=== PATIENT | female | born 1950 | race Hispanic/Latino ===

== ENCOUNTER 2016-11-10 06:35 | Day surgery (SDC) | payer MEDICARE, OTHER ==
[2016-11-10] MEDS ORDERED: ECOTRIN PO ONE (06:58)
[2016-11-10] MEDS ORDERED: NACL 0.9% 500 ML 500 ML IV SCH (07:00)
[2016-11-10 07:37] LABS: Basophils % (Auto) 0.6 % (0.0-1.8); Hematocrit 40.4 % (30.3-42.9); Hemoglobin 13.4 gm/dl (10.1-14.3); Mean Corpuscular HGB Conc 33 % (30-34); Mean Corpuscular Hemoglobin 31 pg (28-32); Mean Corpuscular Volume 93 fl (79-97); Platelet Count 289 K/mm3 (140-440); Red Blood Count 4.32 M/mm3 (3.65-5.03); Red Cell Distribution Width 13.8 % (13.2-15.2); White Blood Count 8.5 K/mm3 (4.5-11.0)
[2016-11-10 07:56] LABS: Anion Gap 16 mmol/L; BUN/Creatinine Ratio 25.71; Blood Urea Nitrogen 18 mg/dL (7-17); Calcium 8.9 mg/dL (8.4-10.2); Carbon Dioxide 25 mmol/L (22-30); Chloride 102.5 mmol/L (98-107); Glucose 87 mg/dL (65-100); Potassium 4.1 mmol/L (3.6-5.0); Sodium 139 mmol/L (137-145)
[2016-11-10] MEDS ORDERED: XYLOCAINE 2% INFILTRATI ONE (08:04)
[2016-11-10] MEDS: CALAN ONE ×2 (08:29→08:50)
[2016-11-10] MEDS: HEPARIN 10,000 UNITS/10 ML ONE ×2 (08:30→08:50)
[2016-11-10] MEDS: HEPARIN/NS 5000 UNIT/500ML(CATH LAB) 1,000 ML IR ONE ×2 (08:31→08:50)
[2016-11-10] MEDS: SUBLIMAZE ONE ×3 (08:31→08:49)
[2016-11-10] MEDS: VERSED ONE ×3 (08:31→08:49)
[2016-11-10] MEDS ORDERED: NEO SYNEPHRINE/NS Syringe(OR USE) IV ONE (08:37)
--- NOTE | 2016-11-10 09:31 | Short Stay Summary ---
Short Stay Documentation Date of service: 11/10/16 - History H&P: obtained from office - Allergies and Medications Current Medications: Allergies Beef Containing Products Adverse Reaction (Verified 11/10/16 06:57) Unknown bandaids Adverse Reaction (Uncoded 11/10/16 06:57) Rash Home Medications Medication Instructions Recorded Confirmed Last Taken Type Clopidogrel Bisulfate [Plavix] 75 mg PO DAILY #30 tablet 07/24/13 11/10/1611/09 Rx AtorvaSTATin [Lipitor] 20 mg PO QDAY 11/03/16 11/10/16 11/09/16 History Cyanocobalamin (Vitamin B-12) 2,000 mcg PO 2XW 11/03/16 11/10/16 11/09/16 History [Vitamin B-12] Ergocalciferol [Vitamin D2] 1 cap PO QWEEK 11/03/16 11/10/16 11/09/16 History Mv,Ca,Min/Iron Fum/FA/Lyco/Lut 1 each PO QDAY 11/03/16 11/10/16 11/09/16 History [Complete Multi Tablet] Phentermine HCl 37.5 mg PO QAM 11/03/16 11/10/16 11/09/16 History Ranitidine HCl [Zantac 150 MG TAB] 150 mg PO QDAY 11/03/16 11/10/16 11/09/16 History Active Medications Sodium Chloride (Nacl 0.9% 500 Ml) 500 mls @ 50 mls/hr IV DIRECT MIGUEL Stop: 11/10/16 16:59 Last Admin: 11/10/16 08:16 Dose: 50 mls/hr - Brief post op/procedure progress note Date of procedure: 11/10/16 Pre-op diagnosis: chest pain, abnormal stress test Procedure: left heart cath - Hospital course Hospital course: Please see dictated cath report. - Disposition Condition at discharge: Stable Disposition: DISCHARGED TO HOME OR SELFCARE - Discharge Diagnoses (1) Chest pain Status: Acute Qualifiers: Chest pain type: C (2) Abnormal stress test Status: Acute (3) Cardiomyopathy Status: Chronic (4) Carotid stenosis Status: Chronic Qualifiers: Laterality: L (5) Hyperlipidemia Status: Chronic Qualifiers: Hyperlipidemia type: H Short Stay Discharge Plan Activity: advance as tolerated Weight Bearing Status: Weight Bear as Tolerated Diet: low fat, low cholesterol, low salt Wound: keep clean and dry Follow up with: DIMITRIS GUADALUPE MD [Staff Physician] - 7 Days Forms: CardCath PCI D/C Instructions Prescriptions: Carvedilol [Coreg] 6.25 mg PO BID #60 tablet
[2016-11-10 10:53] VITALS: BP 148/66
--- NOTE | 2016-11-10 11:39 | Cardiac Catherization Report ---
CARDIAC CATHETERIZATION INDICATIONS FOR PROCEDURE: A 66-year-old female who was noted to have significant carotid disease, has as a preoperative evaluation, had an echocardiogram and a nuclear imaging performed. Echocardiogram showed ejection fraction approximately 37% with moderate to severely hypokinetic apex, mid anterior septal wall and mid inferior septal wall and nuclear imaging performed showed evidence of scar and ischemia in the anterior wall. Hence, scheduled for cardiac catheterization for definitive diagnosis and treatment. 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 Otherwise, she is aware of the procedure, potential complications and alternatives of therapy. It appears that the patient had a left iliac intervention done by Dr. Murphy with a stent placement in the past. Lexiscan nuclear imaging done on 10/12/2016 showed ejection fraction of 28% with moderate area of infarction in the apical lateral myocardial mcgill. DESCRIPTION OF PROCEDURE: The patient was brought to the catheterization laboratory in a fasting condition. The right wrist area and forearm were thoroughly cleansed with Betadine solution. Sterile drapes were applied. Local anesthesia was achieved using 2% Xylocaine. Right radial artery puncture was made using 21-gauge arterial puncture needle. Subsequently, a 5-Malay sheath was introduced. The patient received 3000 units of intravenous heparin and 5 mg of intra-arterial verapamil. The patient was sedated with IV Versed and fentanyl. Using multipurpose catheter, right coronary angiograms were obtained followed by left ventriculogram done in ANDERSON projection using power injector. Subsequently, JL3.5 diagnostic catheter was used to obtain the angiograms of the left coronary artery in the multiple views. At the end of the procedure, catheter and sheath were removed and good hemostasis was achieved with pressure bandage. Following findings were noted. 1. Hemodynamics: Aortic pressure 172/53 mm.hg_. Left ventricular pressure 172 /21 mm.hg. No gradient across the aortic valve. Estimated ejection fraction 25-30%. 2. Right coronary artery dominant vessel arises normally from right coronary cusp. Only very mild smooth irregularities were noted. 3. Left coronary artery showed calcifications in the proximal parts of the LAD. Left main without significant disease. LAD shows a focal 70-75% lesion prior to bifurcation into the mid diagonal branch and LAD. Proximal LAD showed mild disease. Circumflex artery shows long segmental 70-80% eccentric lesion in the proximal part. Distal vessel showed only mild irregularities 4. Left ventriculogram done using power injector in ANDERSON projection showed dilated left ventricle with akinetic mid to distal anterior wall, apical wall, and also inferior wall. Ejection fraction was estimated to be 25-30%. FINAL IMPRESSION: Akinetic anterior wall, apex and distal inferior wall. Significant 70-75% mid LAD focal lesion and also long segmental proximal circumflex lesion noted. However, at this point left ventriculogram shows akinetic areas suggesting this may be mostly scar tissue. The patient does have significant LV dysfunction, would continue medical therapy. Consider viability study and if indicated may consider intervention of the circumflex, LAD. However, considering overall her clinical picture, we would try appropriate medical therapy. The patient is not aware of any history of myocardial infarction in the past. This evaluation is being performed prior to her carotid surgery. No untoward complications were noted. JOB# [id number] LARISSA/KATELIN PAGAN
== END 2016-11-10 12:00 | disposition home or self-care (01) ==
LOC: OPU 06:35
PROVIDERS: ATTEND Internal Medicine
DX: I25.10 Atherosclerotic heart disease of native coronary artery without angina pectoris (principal); E78.5 Hyperlipidemia, unspecified; I65.29 Occlusion and stenosis of unspecified carotid artery; Z72.89 Other problems related to lifestyle; Z79.899 Other long term (current) drug therapy; Z82.3 Family history of stroke; Z82.49 Family history of ischemic heart disease and other diseases of the circulatory system
CPT/HCPCS: 36415; 80048; 85025; 85610; 85730; 93005; 93010; 93458; C1769; C1887; C1894; J1644; J2250; J3010; J7040; J2370; Q9967

== ENCOUNTER 2016-11-24 05:46 | Inpatient (IN) | payer MEDICARE, OTHER ==
--- NOTE | 2016-11-20 10:27 | Admit Criteria Form ---
Admission Criteria Documentation: AMBULATORY SURGERY EXCEPTION CRITERIA Ambulatory Surgery Exception Criteria ( Place 'X' for any and all applicable criteria): Surgery or procedure performed on ambulatory basis may require inpatient stay for[A] ANY ONE of the following(1)(2)(3)(4)(5)(6)(7)(8)(9): [X] I. A preoperative situation, condition, or finding that warrants inpatient stay as indicated by ANY ONE of the following: [] a) Inpatient care needed because of severity of a disease or condition rather than the surgery (eg, severe cardiac or respiratory disease, severe infection) (15) (16 ) (17) (18) [] b) Emergent procedure (eg, angioplasty for acute ischemia)(19) [] c) Complex surgical approach or situation as indicated by ANY ONE of the following(3): [] i) Open approach needed instead of usual endoscopic, transcatheter, or other less invasive procedure [] ii) Difficult approach because of previous operation [] iii) Airway monitoring required after open neck procedures(20)(21) [] iv) Large mass requiring unusually extensive dissection [] v) Additional complicating feature requiring inpatient care (eg, drain management)(22(23): [X] d) Major surgery in a pt with high anesthetic risk as indicated by ANY ONE of the following (2)(3)(5)(7)(8): [X] i) ASA risk class III or higher (severe systemic disease impairing function) [D] [] ii) Advanced age (eg, older than 85 years)(14)(24) [] iii) Symptomatic heart failure(25) [] iv) Symptomatic asthma or COPD(8)(21) [] v) Morbid obesity with hemodynamic or respiratory problems(20)( 21)(26)(27) [] vi) Obstructive sleep apnea(20)(21) [] vii) Former premature infants who are younger than 60 weeks [] viii) High risk for severe postoperative abnormalities (eg, severe postoperative hypocalcemia after parathyroidectomy for severe hyperparathyroidism)(27)( 28) [] ix) Unstable angina(25) [] e) Drug-related risk requiring inpatient stay as indicated by ANY ONE of the following(5)(10)(14)(32)(33) [] i) Procedure requires discontinuing drugs or other therapy (eg , antiarrhythmic medication, antiseizure medication), which necessitates inpatient observation or treatment.(18)(31) [] ii) Major surgery and high risk drug use as indicated by ANY ONE of the following: [] 1) Active abuse of cocaine or similar drug [] 2) Monoamine oxidase inhibitor use [] 3) Other drug identified as posing risk [] f) Inadequate outpatient care situation as indicated by ANY ONE of the following(5)(10)(14)(32)(33) [] i) Patient lives remote from medical facility and procedure has urgent complication potential, and temporary nearby residence cannot be arranged [] ii) Patient will have postprocedure incapacitation and inadequate assistance at home, or alternative level of care cannot be arranged. [] iii) Patient will have long general anesthesia or procedure side effect resolution time, and competent person to stay with patient on first postoperative night at home or alternative level of care cannot be arranged. []iv) Other inadequate outpatient situation that cannot be handled by other means [] II. A perioperative event, condition, or finding that warrants inpatient stay as indicated by ANY ONE of the following (1)(2)(3): [] a) Inadequate physiologic recovery: cardiovascular, respiratory, or hemodynamic status not normal or near preoperative baseline(18) [] b) Hemodynamic instability [] c) Patient not alert with near normal or baseline mental status [] d) Temperature not normal or as expected and not appropriate for outpatient treatment of condition [] e) Ambulatory or appropriate activity level status not yet achieved post procedure [E](34)(35)(36) [] f) Operative site not appropriate (eg, unexpected or excessive drainage or bleeding) [] g) Postoperative effects not resolved or adequately managed (eg, significant pain or vomiting not appropriate for outpatient or next level of care)(10)(12) [] h) Complicating features requiring inpatient care as indicated by ANY ONE of the following(37): [] i) Severe complications of procedure (eg, bowel injury, airway compromise, vascular injury,severe hemorrhage) [] ii) Extensive (eg, dissection far beyond usual scope of procedure ) or prolonged (eg, 120 minutes beyond usual) surgery needed requiring inpatient postoperative care [] iii) Conversion to an open or complex procedure that requires inpatient care (eg, open vs laparoscopic cholecystectomy, abdominal vs vaginal hysterectomy)(38) [] iv) Comorbid condition or test result identified during or post procedure that requires inpatient care (7) [] v) Malignant hyperthermia(30) [] vi) Other complicating feature requiring inpatient care(22)(23) Inpatient stay may be needed until ALL of the following are present (1)(2)(3)(4) (5)(6)(10)(14)(33)(40): []a) Physiologic recovery: cardiovascular, respiratory, and hemodynamic status normal or near preoperative baseline []b) Hemodynamic stability []c) Patient alert, with near normal or baseline mental status []d) Temperature appropriate: patient afebrile or temperature appropriate for outpt treatment of condition []e) Activity level appropriate: ambulatory or appropriate activity level post procedure []f) Operative site appropriate as indicated by ALL of the following: []i) Site dry or with expected drainage []ii) Any blood noted is as expected for procedure. []g) Postoperative effects resolved or managed as indicated by ALL of the following: []i) Pain management appropriate for outpatient (or next level of) care(10) []ii) Minimal nausea and vomiting: if present, successfully treated with oral medication(12) []iii) Headache, dizziness, or drowsiness (if present) are mild. []h) Voiding status acceptable as indicated by ANY ONE of the following: []i) Voiding spontaneously []ii) No voiding but instructions given for follow-up in 6 to 8 hours []iii) Urinary catheter in place, and instructions given for follow-up []i) Complicating features requiring inpatient care manageable at a lower level of care(37) []j) Comorbid conditions manageable at a lower level of care(37) The original [employer] content created by [employer] has been revised. The portions of the content which have been revised are identified through the use of italic text or in bold, and [facility] has neither reviewed nor approved the modified material. All other unmodified content is copyright [employer]. Please see references footnoted in the original [employer] edition 2016 Admission Criteria Met: Yes
[2016-11-24] MEDS ORDERED: PEPCID PO NR (06:00)
[2016-11-24] MEDS ORDERED: ANCEF/STERILE WATER 2 GM/20 ML 2 GM/20 ML SYRINGE IV NR (06:00)
[2016-11-24] MEDS ORDERED: NACL BACTERIOSTATIC INFILTRATI ONE (06:39)
[2016-11-24] MEDS: NACL 0.9% 1000 ML 1,000 ML IV SCH (06:55)
--- NOTE | 2016-11-24 07:22 | Anesthesia Consultation ---
Anesthesia Consult and Med Hx Date of service: 11/24/16 (Scheduled for Right CEA with Dr. Peterson ) - Airway Anesthetic Teeth Evaluation: Good ROM Head & Neck: Adequate Mental/Hyoid Distance: Adequate Mallampati Class: Class II Intubation Access Assessment: Probably Good - Pulmonary Exam CTA: Yes - Cardiac Exam Cardiac Exam: RRR - Pre-Operative Health Status ASA Pre-Surgery Classification: ASA3 Proposed Anesthetic Plan: General - Pre-Anesthesia Comment Pre-Anesthesia Comments: h/o PONV. NPO since midnight. Pt did not take Carvedilol this am. Held in pre-op due to bradycardia. - Pulmonary Hx Smoking: Yes - Cardiovascular System Hx Hypertension: No Hx Peripheral Vascular Disease: Yes (LEFT LEG s/p stent) - Central Nervous System Hx Seizures: No CVA: No Hx Psychiatric Problems: No - Endocrine Hx Renal Disease: No Hx Non-Insulin Dependent Diabetes: No Hx Thyroid Disease: No - Hematic Hx Anemia: No - Other Systems Hx Cancer: No Hx Obesity: Yes (BMI= 35) - Additional Comments Anesthesia Medical History Comments: Pt has known CAD s/p LHC which revealed LAD lesion and Cx lesion. No intervention done at that time. Per cardiology note, plan is to follow up after carotid surgery for further eval and management. Pt denies chest pain or anginal equivalent. Pt did not take Carvedilol this am. Last dose of Plavix last night.
[2016-11-24 07:24] LABS: INR 0.95 (0.87-1.13)
[2016-11-24] MEDS ORDERED: SUBLIMAZE ONE ×2 (07:27→07:48)
[2016-11-24] MEDS ORDERED: ZEMURON IV ONE (07:27)
[2016-11-24] MEDS ORDERED: XYLOCAINE MPF 2% ONE (07:27)
[2016-11-24] MEDS ORDERED: DIPRIVAN 10 MG/ML IV ONE (07:29)
[2016-11-24] MEDS: VERSED IV NR ×2 (07:29→07:36)
[2016-11-24 07:30] LABS: Anion Gap 19 mmol/L; Blood Urea Nitrogen 14 mg/dL (7-17); Calcium 9.1 mg/dL (8.4-10.2); Carbon Dioxide 25 mmol/L (22-30); Chloride 101.8 mmol/L (98-107); Glucose 88 mg/dL (65-100); Sodium 142 mmol/L (137-145)
[2016-11-24] MEDS ORDERED: ZOFRAN IV NR (08:00)
[2016-11-24] MEDS ORDERED: TRANSDERM-SCOP TD NR (08:00)
[2016-11-24] MEDS ORDERED: NACL ONE (08:00)
[2016-11-24] MEDS ORDERED: NACL 0.9% 500 ML ONE (08:00)
[2016-11-24] MEDS ORDERED: ePHEDrine SULFATE ONE ×2 (08:32→16:25)
[2016-11-24] MEDS ORDERED: AMIDATE IV ONE (08:38)
[2016-11-24] MEDS ORDERED: DECADRON ONE (08:51)
[2016-11-24] MEDS ORDERED: HEPARIN 10,000 UNITS/10 ML ONE (08:54)
[2016-11-24] MEDS ORDERED: NACL 0.9% IR ONE (09:01)
[2016-11-24] MEDS ORDERED: GELFOAM TP ONE (09:02)
[2016-11-24] MEDS ORDERED: HEPARIN 10,000 UNITS/10 ML 2,000 UNIT in NACL 0.9% 500 ML 500 ML IR ONE (09:02)
[2016-11-24] MEDS ORDERED: THROMBIN (BOVINE) TP ONE (09:02)
[2016-11-24] MEDS ORDERED: MARCAINE 0.5% INFILTRATI ONE (09:02)
[2016-11-24] MEDS ORDERED: RIFADIN 600 MG in NACL 0.9% 50 ML IR ONE (09:03)
[2016-11-24] MEDS ORDERED: MORPHINE IV PRN (09:03)
--- NOTE | 2016-11-24 09:57 | Operative Report ---
Operative Report Operative Report: Date of procedure: 11/24/2016 Pre-operative diagnosis: Asymptomatic Right Carotid Artery Stenosis Post-operative diagnosis: Asymptomatic Right Carotid Artery Stenosis Procedure(s): 1. Right Carotid Endarterectomy With Patch Angioplasty 2. Intraoperative Completion Duplex Surgeon: Travis Peterson MD Advertising Dispatch Clerk: None Anesthesia: General Endotracheal Anesthesia EBL: 50 mL Findings: Significant internal right carotid artery stenosis. 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 She had a CTA that confirmed approximately 90% stenosis of the right internal carotid artery. She is a symptomatically however given that her degree of stenosis greater than 80% and she was a suitable candidate for surgery she was offered an endarterectomy. She was given the risks, benefits, and alternative procedures and consented to procedure. Description of Procedure: The patient was brought to the operating room and laid in supine position. After general endotracheal anesthesia was achieved the patient was placed in beachchair position with her head elevated and turned slightly to the left. The patient's neck and chest were prepped and draped in normal fashion. An oblique incision was then created along the anterior border of the sternocleidomastoid. The incision was then carried down to the facial vein using sharp dissection. The facial vein was then dissected out circumferentially, suture ligated and divided. The dissection was then carried down to the common carotid using sharp dissection. The common carotid artery was dissected out circumferentially taking care to avoid the vagus nerve which was identified and avoided. The artery was then controlled with a large vessel loop. The dissection was carried up along the external carotid and the superficial thyroid artery was identified dissected out circumferentially and controlled with a 2-0 silk. The external carotid was dissected out and controlled a small vessel loop. I then dissected out the internal carotid artery well above the plaque which was identified by a change in hue of the artery from yellow to blue and palpation of the artery over a right angle. The hypoglossal nerve was identified and avoided. I controlled the internal carotid artery with a small vessel and at this point the patient was systemically heparinized with heparin IV. Once the heparin had circulated for 3 minute I clamped the internal carotid artery followed by the common carotid and then the external Carotid artery. I created an arteriotomy extending from the common carotid into the internal carotid, well above the plaque, using an 11 blade and [place] scissors. I then flashed the internal carotid artery to check for adequate backbleeding. Once ensure there was adequate backbleeding reclamped the artery and used a [place] blade to dissect the plaque away from the artery. I used a right angle to continue the dissection of this plane from lateral to medial and then divided the plaque using [place] scissors. I then trimmed the plaque proximally using [place] and then teased the plaque away from the distal endpoint insuring that there were no areas of dissection or intimal flaps. These plaque forceps to remove all loose debris and then flushed the artery with heparinized saline. I then closed the artery using the Dacron patch and two 6-0 Prolenes in running fashion. Prior to completing the closure I flushed all arteries to remove all loose debris and then flushed the artery with heparinized saline. I then completed the closure in an flashed the internal carotid, reclamped and then removed the clamp from the common carotid followed by the external carotid and allowed any loose debris to flush into the external carotid. I then removed the clamp from the internal carotid artery. Hemostasis was achieved with repair sutures with 6-0 Prolene in interrupted fashion and a combination of direct pressure with Quick Clot. Once hemostasis was achieved I performed an intraoperative duplex that demonstrated no evidence of dissection and normalization of internal carotid velocity. I then anesthetized the wound with Exparel and closed in 2 layers using a 3-0 Vicryl in running in the deep dermal layer and a 4-0 Monocryl in running in the subcuticular layer and dressed it with the Surgiseal. The patient tolerated the procedure well all sponge needle and instrument counts were correct the patient was taken to the recovery area in stable condition.
[2016-11-24] MEDS ORDERED: NORCO 5/325 PO PRN (10:00)
[2016-11-24] MEDS ORDERED: INTROPIN DRIP 800 MG/D5W 250 ML 800 MG/250 ML BAG IV SCH (10:00)
[2016-11-24] MEDS ORDERED: NIPRIDE 50 MG in D5W 248 ML IV SCH (10:00)
[2016-11-24] MEDS ORDERED: PERCOCET 5/325 PO PRN (10:00)
--- NOTE | 2016-11-24 10:00 | Short Stay Summary ---
Short Stay Documentation Date of service: 11/24/16 Narrative H&P: See H&P - History H&P: obtained from office - Allergies and Medications Current Medications: Allergies Beef Containing Products Adverse Reaction (Verified 11/24/16 07:57) PULLS SKIN OFF bandaids Adverse Reaction (Uncoded 11/10/16 06:57) Rash SURGICL TAPE Adverse Reaction (Uncoded 11/24/16 07:57) Unknown Home Medications Medication Instructions Recorded Confirmed Last Taken Type Clopidogrel Bisulfate [Plavix] 75 mg PO DAILY #30 tablet 07/24/13 11/19/1611/23 Rx AtorvaSTATin [Lipitor] 20 mg PO QDAY 11/03/16 11/19/16 11/23/16 History Cyanocobalamin (Vitamin B-12) 2,000 mcg PO 2XW 11/03/16 11/19/16 11/23/16 History [Vitamin B-12] Ergocalciferol [Vitamin D2] 1 cap PO QWEEK 11/03/16 11/19/16 11/23/16 History Mv,Ca,Min/Iron Fum/FA/Lyco/Lut 1 each PO QDAY 11/03/16 11/19/16 11/23/16 History [Complete Multi Tablet] Phentermine HCl 37.5 mg PO QAM 11/03/16 11/19/16 11/09/16 History Ranitidine HCl [Zantac 150 MG TAB] 150 mg PO QDAY 11/03/16 11/19/16 11/23/16 History Carvedilol [Coreg] 6.25 mg PO BID #60 tablet 11/10/16 11/19/16 11/23/16 20:00 Rx Active Medications Famotidine (Pepcid) 20 mg PO PREOP NR Stop: 11/24/16 23:59 Last Admin: 11/24/16 07:16 Dose: 20 mg Cefazolin Sodium (Ancef/Sterile Water 2 Gm/20 Ml) 2 gm in 20 mls @ 80 mls/hr IV PREOP NR PRN Reason: Protocol Stop: 12/04/16 23:59 Sodium Chloride (Nacl 0.9% 1000 Ml) 1,000 mls @ 42 mls/hr IV DIRECT MIGUEL Last Admin: 11/24/16 06:55 Dose: 42 mls/hr Midazolam HCl (Versed) 2 mg IV PREOP NR Stop: 11/24/16 23:59 Last Admin: 11/24/16 07:36 Dose: 1 mg Morphine Sulfate (Morphine) 2 mg IV Q10MIN PRN PRN Reason: Pain, Moderate (4-6) Stop: 11/24/16 23:59 Ondansetron HCl (Zofran) 4 mg IV PREOP NR Stop: 11/24/16 23:59 Last Admin: 11/24/16 07:33 Dose: 4 mg Scopolamine (Transderm-Scop) 1 each TD PREOP NR Stop: 11/24/16 23:59 Last Admin: 11/24/16 07:32 Dose: 1 each - Brief post op/procedure progress note Date of procedure: 11/24/16 Pre-op diagnosis: Asymptomatic Right Internal Carotid Artery Stenosis Post-op diagnosis: same Procedure: 1. Right Carotid Endarterectomy with Patch Angioplasty 2. Intraoperative Completion Duplex Anesthesia: GETA Surgeon: RADHA RIVAS Estimated blood loss: 50-100ml Pathology: list (right carotid plaque) Specimen disposition: to lab Condition: stable - Disposition Condition at discharge: Good Disposition: DISCHARGED TO HOME OR SELFCARE Short Stay Discharge Plan Activity: no driving until cleared by PCP, other (no heavy lifting or bending at the waist until cleared by physician) Wound: open to air, keep clean and dry, other (okay to shower and wash the wound with soap and water but do not soak in water) Follow up with: RADHA RIVAS MD [Staff Physician] - 14 Days Prescriptions: HYDROcodone/APAP 7.5-325 [[place] 7.5/325] 1 each PO Q6HR PRN #60 tablet PRN Reason: Pain
[2016-11-24] MEDS ORDERED: NEOSTIGMINE ONE (10:09)
[2016-11-24] MEDS ORDERED: ROBINUL ONE ×2 (10:09→10:27)
[2016-11-24] MEDS ORDERED: ROBINUL IV PRN (10:32)
[2016-11-24] MEDS ORDERED: ZOFRAN IV PRN (11:10)
[2016-11-24] MEDS ORDERED: REGLAN IV PRN (11:44)
--- NOTE | 2016-11-24 12:02 | Post Anesthesia Evaluation ---
- Post Anesthesia Evaluation Patient Participated: Yes Airway Patent: Yes Stable Respiratory Function: Yes Nausea/Vomiting: No Temp > 96.8F: Yes Pain Manageable: Yes Adequeate Hydration: Yes Anesthesia Complications: No
[2016-11-24 13:27] LABS: Creatine Kinase MB < 1.0 ng/mL (0.0-4.0)
[2016-11-24 13:28] LABS: Anion Gap 16 mmol/L; Blood Urea Nitrogen 11 mg/dL (7-17); Calcium 7.2 mg/dL (8.4-10.2); Carbon Dioxide 20 mmol/L (22-30); Chloride 109.5 mmol/L (98-107); Creatine Kinase 55 units/L (30-135); Glucose 133 mg/dL (65-100); Potassium 4.2 mmol/L (3.6-5.0); Sodium 141 mmol/L (137-145)
[2016-11-24] MEDS ORDERED: ePHEDrine SULFATE IV PRN (16:30)
[2016-11-24] MEDS: ANCEF/NS 1 GM/50 ML 1 GM/50 ML BAG IV SCH (18:21)
[2016-11-24] MEDS: PLAVIX PO SCH ×2 (19:45→21:26)
[2016-11-24] MEDS: COLACE PO SCH ×2 (19:45→21:26)
[2016-11-24] MEDS: COREG PO SCH (21:12)
[2016-11-25] MEDS: ANCEF/NS 1 GM/50 ML 1 GM/50 ML BAG IV SCH (01:06)
[2016-11-25] MEDS: NACL 0.9% 1000 ML 1,000 ML IV SCH ×2 (01:08→14:56)
--- NOTE | 2016-11-25 08:10 | Vascular Lab Report ---
INTRAOPERATIVE CAROTID ARTERY DUPLEX Reason for exam: Completion of carotid endarterectomy Comments on the right: The common and internal carotid arteries are patent without evidence of intraluminal irregularities. Flow velocities appear to be appropriate. No obvious technical defects at the endarterectomy site appreciated. Impression: No obvious technical imperfections at the endarterectomy site.
[2016-11-25] MEDS: PEPCID PO SCH (09:39)
[2016-11-25] MEDS: COLACE PO SCH ×2 (09:39→21:29)
[2016-11-25] MEDS: PLAVIX PO SCH (09:39)
[2016-11-25] MEDS: COREG PO SCH (10:00)
[2016-11-25] MEDS ORDERED: NON-FORMULARY (Ranitidine Hcl [Zantac 150 Mg Tab] 150 MG) PO SCH (10:00)
--- NOTE | 2016-11-25 10:42 | Consultation ---
History of Present Illness Consult date: 11/25/16 Requesting physician: RADHA RIVAS History of present illness: PULMONARY/CCM CONSULT NOTE (Full dictation # [id number]) Please see dictated notes for full details Medications and Allergies Allergies Allergy/AdvReac Type Severity Reaction Status Date / Time Beef Containing Products AdvReac PULLS SKIN Verified 11/24/16 07:57 OFF bandaids AdvReac Rash Uncoded 11/10/16 06:57 SURGICL TAPE AdvReac Unknown Uncoded 11/24/16 07:57 Home Medications Medication Instructions Recorded Confirmed Last Taken Type Clopidogrel Bisulfate [Plavix] 75 mg PO DAILY #30 tablet 07/24/13 11/19/1611/23 Rx AtorvaSTATin [Lipitor] 20 mg PO QDAY 11/03/16 11/19/16 11/23/16 History Cyanocobalamin (Vitamin B-12) 2,000 mcg PO 2XW 11/03/16 11/19/16 11/23/16 History [Vitamin B-12] Ergocalciferol [Vitamin D2] 1 cap PO QWEEK 11/03/16 11/19/16 11/23/16 History Mv,Ca,Min/Iron Fum/FA/Lyco/Lut 1 each PO QDAY 11/03/16 11/19/16 11/23/16 History [Complete Multi Tablet] Phentermine HCl 37.5 mg PO QAM 11/03/16 11/19/16 11/09/16 History Ranitidine HCl [Zantac 150 MG TAB] 150 mg PO QDAY 11/03/16 11/19/16 11/23/16 History Carvedilol [Coreg] 6.25 mg PO BID #60 tablet 11/10/16 11/19/16 11/23/16 20:00 Rx HYDROcodone/APAP 7.5-325 [[place] 1 each PO Q6HR PRN #60 tablet 11/24/16 Unknown Rx 7.5/325] Active Meds: Active Medications Acetaminophen/Hydrocodone Bitart ([place] 5/325) 1 each PO Q6H PRN PRN Reason: Pain, Moderate (4-6) Atorvastatin Calcium (Lipitor) 20 mg PO QHS [facility] Last Admin: 11/24/16 21:26 Dose: 20 mg Carvedilol (Coreg) 6.25 mg PO BID [facility] Last Admin: 11/24/16 21:12 Dose: Not Given Clopidogrel Bisulfate (Plavix) 75 mg PO QDAY [facility] Last Admin: 11/25/16 09:39 Dose: 75 mg Docusate Sodium (Colace) 100 mg PO BID [facility] Last Admin: 11/25/16 09:39 Dose: 100 mg Ephedrine Sulfate (Ephedrine Sulfate) 10 mg IV Q5M PRN PRN Reason: Blood Pressure Last Admin: 11/24/16 16:30 Dose: 10 mg Famotidine (Pepcid) 20 mg PO DAILY [facility] Last Admin: 11/25/16 09:39 Dose: 20 mg Glycopyrrolate (Robinul) 0.1 mg IV ONCE PRN PRN Reason: Bradycardia Last Admin: 11/24/16 10:32 Dose: 0.1 mg Dopamine HCl/Dextrose (Intropin Drip 800 Mg/D5w 250 Ml) 800 mg in 250 mls @ 9.352 mls/hr IV TITR MIGUEL; 5 MCG/KG/MIN PRN Reason: Protocol Sodium Nitroprusside 50 mg/ (Dextrose) 250 mls @ 7.48 mls/hr IV TITR MIGUEL; 0.25 MCG/KG/MIN PRN Reason: Protocol Sodium Chloride (Nacl 0.9% 1000 Ml) 1,000 mls @ 100 mls/hr IV DIRECT MIGUEL Metoclopramide HCl (Reglan) 10 mg IV ONCE PRN PRN Reason: Nausea Last Admin: 11/24/16 11:58 Dose: 10 mg Oxycodone/Acetaminophen (Percocet 5/325) 1 tab PO Q6H PRN PRN Reason: Pain, Moderate (4-6) Physical Examination Vital signs: Vital Signs Temp Pulse Resp BP Pulse Ox 98.7 F 57 L 18 119/48 96 11/24/16 06:35 11/24/16 06:35 11/24/16 06:35 11/24/16 06:35 11/24/16 06:35 Results - Laboratory Findings CBC and BMP: 11/24/16 12:30 PT/INR, D-dimer PT 12.6 Sec. (12.2-14.9) 11/24/16 06:40 INR 0.95 (0.87-1.13) 11/24/16 06:40 Abnormal lab findings: Abnormal Labs 03/07/17 12:30 Chloride 109.5 H Carbon Dioxide 20 L Creatinine 0.5 L Glucose 133 H Calcium 7.2 L D
--- NOTE | 2016-11-25 13:26 | Consultation ---
History of Present Illness Consult date: 11/25/16 Requesting physician: SONU SAUCEDA Consult reason: bradycardia History of present illness: The patient is a 66 year old female who is followed by Dr. Alcantara in the office with a history of carotid stenosis, cardiomyopathy, hypertension, hyperlipidemia who underwent successful right carotid endarterectomy yesterday by Dr. Peterson. Today, she has been bradycardic with HR in the 40s-50s. SBP 80s- 100s. She denies any chest pain, palpitations, shortness of breath, dizziness, lightheadedness or syncope. Echo done 09/2016 showed EF 37%. Left heart cath done 11/10/16 showed akinetic anterior wall, apex, and distal inferior wall. A 70 -75% mid LAD lesion and 70-80% proximal LCX lesion were also noted. A viability study at [place] is planned to help determine further management of her CAD. Given her cardiomyopathy, she was started on coreg 6.25mg BID following her heart cath. Past History Past Medical History: hyperthyroidism, hyperlipidemia, other (carotid stenosis, cardiomyopathy, hearing impaired) Past Surgical History: Other (s/p right CEA) Social history: . denies: smoking, alcohol abuse Family history: no significant family history Medications and Allergies Allergies Allergy/AdvReac Type Severity Reaction Status Date / Time Beef Containing Products AdvReac PULLS SKIN Verified 11/24/16 07:57 OFF bandaids AdvReac Rash Uncoded 11/10/16 06:57 SURGICL TAPE AdvReac Unknown Uncoded 11/24/16 07:57 Home Medications Medication Instructions Recorded Confirmed Last Taken Type Clopidogrel Bisulfate [Plavix] 75 mg PO DAILY #30 tablet 07/24/13 11/19/1611/23 Rx AtorvaSTATin [Lipitor] 20 mg PO QDAY 11/03/16 11/19/16 11/23/16 History Cyanocobalamin (Vitamin B-12) 2,000 mcg PO 2XW 11/03/16 11/19/16 11/23/16 History [Vitamin B-12] Ergocalciferol [Vitamin D2] 1 cap PO QWEEK 11/03/16 11/19/16 11/23/16 History Mv,Ca,Min/Iron Fum/FA/Lyco/Lut 1 each PO QDAY 11/03/16 11/19/16 11/23/16 History [Complete Multi Tablet] Phentermine HCl 37.5 mg PO QAM 11/03/16 11/19/16 11/09/16 History Ranitidine HCl [Zantac 150 MG TAB] 150 mg PO QDAY 11/03/16 11/19/16 11/23/16 History Carvedilol [Coreg] 6.25 mg PO BID #60 tablet 11/10/16 11/19/16 11/23/16 20:00 Rx HYDROcodone/APAP 7.5-325 [[place] 1 each PO Q6HR PRN #60 tablet 11/24/16 Unknown Rx 7.5/325] Active Meds: Active Medications Acetaminophen/Hydrocodone Bitart ([place] 5/325) 1 each PO Q6H PRN PRN Reason: Pain, Moderate (4-6) Atorvastatin Calcium (Lipitor) 20 mg PO QHS [facility] Last Admin: 11/24/16 21:26 Dose: 20 mg Carvedilol (Coreg) 6.25 mg PO BID [facility] Last Admin: 11/24/16 21:12 Dose: Not Given Clopidogrel Bisulfate (Plavix) 75 mg PO QDAY [facility] Last Admin: 11/25/16 09:39 Dose: 75 mg Docusate Sodium (Colace) 100 mg PO BID [facility] Last Admin: 11/25/16 09:39 Dose: 100 mg Ephedrine Sulfate (Ephedrine Sulfate) 10 mg IV Q5M PRN PRN Reason: Blood Pressure Last Admin: 11/24/16 16:30 Dose: 10 mg Famotidine (Pepcid) 20 mg PO DAILY [facility] Last Admin: 11/25/16 09:39 Dose: 20 mg Glycopyrrolate (Robinul) 0.1 mg IV ONCE PRN PRN Reason: Bradycardia Last Admin: 11/24/16 10:32 Dose: 0.1 mg Dopamine HCl/Dextrose (Intropin Drip 800 Mg/D5w 250 Ml) 800 mg in 250 mls @ 9.352 mls/hr IV TITR MIGUEL; 5 MCG/KG/MIN PRN Reason: Protocol Sodium Nitroprusside 50 mg/ (Dextrose) 250 mls @ 7.48 mls/hr IV TITR MIGUEL; 0.25 MCG/KG/MIN PRN Reason: Protocol Sodium Chloride (Nacl 0.9% 1000 Ml) 1,000 mls @ 100 mls/hr IV DIRECT MIGUEL Metoclopramide HCl (Reglan) 10 mg IV ONCE PRN PRN Reason: Nausea Last Admin: 11/24/16 11:58 Dose: 10 mg Oxycodone/Acetaminophen (Percocet 5/325) 1 tab PO Q6H PRN PRN Reason: Pain, Moderate (4-6) Review of Systems Constitutional: no fever, no chills Ears, nose, mouth and throat: no nasal congestion, no nasal discharge, no sinus pressure Cardiovascular: no chest pain, no orthopnea, no palpitations, no lightheadedness , no shortness of breath, no dyspnea on exertion, no leg edema Respiratory: no cough, no congestion, no wheezing Gastrointestinal: no nausea, no vomiting, no diarrhea, no constipation Genitourinary Female: no dysuria, no urgency Musculoskeletal: no neck stiffness, no neck pain, no myalgias Integumentary: no rash, no pruritis Neurological: no parathesias, no numbness, no tingling, no headaches Endocrine: no cold intolerance, no heat intolerance Hematologic/Lymphatic: no easy bruising, no easy bleeding Allergic/Immunologic: no urticaria, no wheezing Physical Examination Vital Signs Temp Pulse Resp BP Pulse Ox 98.7 F 57 L 18 119/48 96 11/24/16 06:35 11/24/16 06:35 11/24/16 06:35 11/24/16 06:35 11/24/16 06:35 General appearance: no acute distress, obese HEENT: Positive: Normocephaly, Mucus Membranes Moist Neck: Positive: neck supple, trachea midline, Other (right neck surgical incision approximated) Cardiac: Positive: Reg Rate and Rhythm, S1/S2 Lungs: Positive: Normal Exam Neuro: Positive: Grossly Intact Abdomen: Positive: Soft, Active Bowel Sounds. Negative: Tender Skin: Positive: Clear. Negative: Rash Extremities: Present: normal. Absent: edema Results 11/25/16 13:20 Cardiac Enzymes 11/24/16 Range/Units 12:30 CK-MB (CK-2) < 1.0 (0.0-4.0) ng/mL Coagulation 11/24/16 Range/Units 06:40 PT 12.6 (12.2-14.9) Sec. INR 0.95 (0.87-1.13) Comprehensive Metabolic Panel 11/24/16 11/24/16 Range/Units 06:40 12:30 Sodium 142 141 (137-145) mmol/L Potassium 4.0 4.2 (3.6-5.0) mmol/L Chloride 101.8 109.5 H (98-107) mmol/L Carbon Dioxide 25 20 L (22-30) mmol/L BUN 14 11 (7-17) mg/dL Creatinine 0.8 0.5 L (0.7-1.2) mg/dL Glucose 88 133 H (65-100) mg/dL Calcium 9.1 7.2 L D (8.4-10.2) mg/dL - Imaging and Cardiology Echo: report reviewed (09/2016: EF 37%) EKG: image reviewed EKG interpretations - Telemetry EKG Rhythm: Sinus Bradycardia - EKG Sinus rhythms and dysrhythmias: sinus bradycardia Repolarization changes or abnormalities: ST or T wave suggestive of ischemia Assessment and Plan Sinus bradycardia-->HR improves with activity pt. asymptomatic d/c coreg check TSH Cardiomyopathy EF 37% currently compensated no beta abel due to bradycardia no ACEI/ARB due to hypotension Coronary artery disease [facility] 11/10/16: akinetic anterior wall, apex, distal inferior wall, 70-75% mid LAD, 70-80% proximal LCX-->viability study planned Carotid stenosis s/p right CEA per vascular surgery Hypertension Hyperlipidemia Check TSH. Discontinue coreg. Follow up appointment with Dr. Alcantara in the [place] office on 12/03/16 at 3:30 pm. The patient has been seen in conjunction with Dr. Davalos who agrees with the assessment and plan of care. Thank you Dr. Sauceda for allowing us to participate in the care of this patient.
[2016-11-25 14:21] LABS: Anion Gap 16 mmol/L; BUN/Creatinine Ratio 15.71; Blood Urea Nitrogen 11 mg/dL (7-17); Calcium 7.8 mg/dL (8.4-10.2); Carbon Dioxide 24 mmol/L (22-30); Chloride 106.5 mmol/L (98-107); Glucose 99 mg/dL (65-100); INR 1.15 (0.87-1.13); Magnesium 1.9 mg/dL (1.7-2.3); Potassium 4.2 mmol/L (3.6-5.0); Sodium 142 mmol/L (137-145)
--- NOTE | 2016-11-25 18:36 | Progress Note ---
Assessment and Plan This patient is status post a right carotid endarterectomy. She appears to be doing well from a surgical standpoint, but developed hypotension earlier today. She was evaluated by decay control operator and subsequently her cover machine operator. I checked and the patient a couple times throughout the day. Her systolic blood pressure is presently slightly above 100. We'll continue to monitor the patient in the ICU overnight if her blood pressure improves, then she may be able to be discharged tomorrow. - Patient Problems (1) Carotid stenosis Current Visit: No Status: Chronic Qualifiers: Laterality: L Subjective Date of service: 11/25/16 Interval history: Patient is awake and alert. Patient is doing well postoperatively. She had a mild headache yesterday that resolved after a nap. She denies any new headaches. She denies any new neurologic symptoms. Objective - Constitutional Vitals: Vital Signs - 12hr 11/25/16 11/25/16 11/25/16 07:01 07:51 08:00 Temperature 97.3 F L Pulse Rate 41 L 43 L Pulse Rate [ 55 L From Monitor] Respiratory 14 16 15 Rate Blood Pressure 110/53 92/43 O2 Sat by Pulse 100 97 99 Oximetry 11/25/16 11/25/16 11/25/16 09:09 10:00 11:00 Temperature Pulse Rate 59 L 48 L 64 Pulse Rate [ From Monitor] Respiratory 16 18 18 Rate Blood Pressure 97/33 88/41 O2 Sat by Pulse 93 95 95 Oximetry 11/25/16 11/25/16 11/25/16 12:00 12:01 13:00 Temperature 98.3 F Pulse Rate 67 49 L Pulse Rate [ 57 L From Monitor] Respiratory 16 23 Rate Blood Pressure 111/65 106/44 O2 Sat by Pulse 95 94 Oximetry 11/25/16 11/25/16 11/25/16 14:00 15:00 16:00 Temperature 98.5 F Pulse Rate 55 L 63 65 Pulse Rate [ From Monitor] Respiratory 19 22 28 H Rate Blood Pressure 114/47 121/58 113/57 O2 Sat by Pulse 94 96 97 Oximetry 11/25/16 17:00 Temperature Pulse Rate 74 Pulse Rate [ From Monitor] Respiratory 14 Rate Blood Pressure 104/69 O2 Sat by Pulse Oximetry General appearance: Present: no acute distress - EENT Eyes: EOM intact ENT: hearing decreased (patient reads lips) - Neck Neck: supple (soft with scant swelling. Her incision is intact without erythema or drainage. She has mild ecchymosis.) - Respiratory Respiratory effort: normal Extremities: normal temperature - Neurologic Neurologic: no focal deficits - Psychiatric Psychiatric: appropriate mood/affect, intact judgment & insight, cooperative - Labs CBC & Chem 7: 11/25/16 13:20 Labs: Abnormal lab results 11/25/16 11/25/16 Range/Units 13:20 13:20 INR 1.15 H (0.87-1.13) Calcium 7.8 L (8.4-10.2) mg/dL
--- NOTE | 2016-11-26 00:58 | Consultation ---
CONSULTING PHYSICIAN: Travis Peterson MD REASON FOR CONSULTATION: Need for ICU admission and observation, status post carotid endarterectomy. CHIEF COMPLAINT AND HISTORY OF PRESENT ILLNESS: The patient is a 66-year-old female with past medical history amongst other things significant for a diagnosis of peripheral vascular disease. According to her in the year 2011, she had some intermittent claudication and had a stent put in her lower extremities. She thinks it was the left lower extremity. Since then, they have been keeping an eye on her. She stated that recently carotid ultrasound showed 99% occlusion of the right carotid. The decision was made to bring her in for elective carotid endarterectomy. This was done and postprocedure, she was brought into the Intensive Care Unit for observation. She has had some trouble with bradycardia since then; however, has been asymptomatic bradycardia and she was on some beta blockers. When I stopped by to see her, she denied any lightheadedness. She was sitting on the side of the bed. Denied any orthostatic symptoms. Denied any nausea, vomiting, chest pains, palpitations. She has a remote [id number] tobacco smoking history, but quit smoking about 5 years ago. She denies nonrestorative sleep snoring or witnessed apneas. She is obese. That really is as much of the history of presentation as I have. PAST MEDICAL HISTORY: Peripheral vascular disease, hypertension, carotid stenosis, history of arrhythmia, hyperlipidemia. She is obese. PAST SURGICAL HISTORY: She had lifestyle face lift on 03/09/2013 and apparently, a left iliac artery stent on 07/24/2013. MEDICATIONS: She was on at the time I stopped by to see her, according to the medication administration record included the following: [place] 5/325 one tablet p.o. q.6 hours p.r.n. pain, Lipitor 20 mg p.o. at bedtime, Coreg 6.25 mg p.o. b.i.d., Plavix 75 mg p.o. daily, Colace 100 mg p.o. b.i.d., dopamine drip was used intraoperatively, also intraoperatively p.r.n. use, Pepcid 20 mg p.o. daily, Robinmayela received a one-time dose 0.1 mg IV, received some p.r.n. Reglan. ALLERGIES: Beef containing production and surgical tape. DIET: Obese lady. She denies any significant weight loss or gain, preceding few weeks to months. FAMILY AND SOCIAL HISTORY: Lives in the community. She is , drinks occasionally. No current tobacco or illicit drug use or abuse. There is a family history of diabetes, heart disease, and cancer, it is unclear who that is in. REVIEW OF SYSTEMS: No loss of consciousness. No new onset seizures. No new onset focal weakness. No gross hematochezia or melena. No gross hematuria or dysuria. No hematemesis. No hemoptysis. No palpitations. Complete review of systems obtained. Pertinent positives and/or negatives as in body of history above, otherwise they are noncontributory. PHYSICAL EXAMINATION: VITAL SIGNS: At presentation, she was afebrile, temperature 98.7, pulse was 57, respiratory rate was 18, blood pressure 119/48, oxygen sats 96%, inspired oxygen concentration was not recorded, pulse got as low as 36 at a point, but is running in the 48-64 range right now. HEAD, EYES, EARS, NOSE, AND THROAT: Pupils are equal, round, about 4 mm, reactive to light. Extraocular muscle movements were intact. Grossly, no palpable lymph nodes in the supraclavicular or submandibular lymph node chains. LUNGS: Auscultation of both lung fisher unremarkable. Lungs are clear bilaterally. HEART: Heart sounds 1 and 2 are heard. Regular rate and rhythm at the time of my evaluation. ABDOMEN: Soft, full, bowel sounds are positive, nontender. She has some tenderness in the right carotid area around the site of surgery. EXTREMITIES: Without overt digital clubbing, cyanosis, or pedal edema. NEUROLOGIC: The exam was grossly nonfocal. LABORATORY DATA: From my review are as follows: INR 0.95. Serum sodium 142, potassium 4.0, chloride 102, bicarbonate 25, BUN 14, creatinine 0.8, glucose 88. Cardiac enzymes were negative. No radiographic studies for my review. ASSESSMENT AND PLAN: We have an elderly lady in here with a little bit of a bothersome bradycardia at this point, she went as low as 36. She is currently on Coreg, I believe at the list that should be reduced; however, most importantly, I think she should be seen by her pile driver operator to adjust her home medications before she is discharged on an inordinate dose of beta blockers. I do see echocardiogram here from 10/12/2016 that also shows reduced ejection fraction around 37% as well as mild diastolic dysfunction and elevated right ventricular systolic pressures . So, recommendations will be as follows: Supplemental oxygen as needed to keep sats greater than 92%. Aspiration precautions will be continued, p.r.n. bronchodilators. We are holding her beta blockade for now. We will put in for a Cardiology consult. Otherwise, she is appropriately on GI prophylaxis. She will be placed on DVT prophylaxis. Flu and pneumonia vaccination will be per protocol. Further care will be per the attending. Thank you very much for the consult Dr. Peterson. We will follow along and make further recommendations as picture progresses/becomes clearer. JOB# [id number] KOLE/KATELIN
[2016-11-26] MEDS: NACL 0.9% 1000 ML 1,000 ML IV SCH ×2 (01:00→10:30)
--- NOTE | 2016-11-26 08:49 | Progress Note ---
Assessment and Plan Sinus bradycardia-->HR improves with activity pt. asymptomatic TSH normal coreg discontinued Cardiomyopathy EF 37% currently compensated no beta abel due to bradycardia no ACEI/ARB due to hypotension Coronary artery disease [facility] 11/10/16: akinetic anterior wall, apex, distal inferior wall, 70-75% mid LAD, 70-80% proximal LCX-->viability study planned Carotid stenosis s/p right CEA per vascular surgery Hypertension Hyperlipidemia Coreg discontinued. Stable cardiac status. Follow up appointment with Dr. ANNA Alcantara in the [place] office on 12/03/16 at 3:30 pm. The patient has been seen in conjunction with Dr. Davalos who agrees with the assessment and plan of care. Subjective Date of service: 11/26/16 Principal diagnosis: sinus bradycardia, s/p R CEA Interval history: The patient is resting comfortably in bed. No new complaints. Objective Last Vital Signs Temp 98.5 F 11/26/16 10:00 Pulse 84 11/26/16 09:01 Resp 13 11/26/16 09:01 BP 72/38 11/26/16 09:01 Pulse Ox 93 11/26/16 09:01 - Physical Examination General: No Apparent Distress HEENT: Positive: Normocephaly, Mucus Membranes Moist Neck: Positive: neck supple, trachea midline, Other (right neck surgical incision approximated) Cardiac: Positive: Reg Rate and Rhythm, S1/S2 Lungs: Positive: clear to auscultation Neuro: Positive: Grossly Intact Abdomen: Positive: Soft, Active Bowel Sounds. Negative: Tender Skin: Positive: Clear. Negative: Rash Extremities: Present: normal. Absent: edema - Labs and Meds Coagulation 11/25/16 Range/Units 13:20 PT 14.6 (12.2-14.9) Sec. INR 1.15 H (0.87-1.13) Comprehensive Metabolic Panel 11/25/16 Range/Units 13:20 Sodium 142 (137-145) mmol/L Potassium 4.2 (3.6-5.0) mmol/L Chloride 106.5 (98-107) mmol/L Carbon Dioxide 24 (22-30) mmol/L BUN 11 (7-17) mg/dL Creatinine 0.7 (0.7-1.2) mg/dL Glucose 99 (65-100) mg/dL Calcium 7.8 L (8.4-10.2) mg/dL - Imaging and Cardiology EKG: image reviewed Echo: report reviewed (09/2016: EF 37%) - Telemetry EKG Rhythm: Sinus Rhythm - EKG Sinus rhythms and dysrhythmias: sinus bradycardia Repolarization changes or abnormalities: ST or T wave suggestive of ischemia
[2016-11-26] MEDS: PLAVIX PO SCH (09:08)
[2016-11-26] MEDS: PEPCID PO SCH (09:08)
[2016-11-26] MEDS: COLACE PO SCH ×2 (09:09→21:27)
--- NOTE | 2016-11-26 11:20 | Progress Note ---
Assessment and Plan - Patient Problems (1) Bradycardia Current Visit: Yes Status: Acute Plan to address problem: - seen by cardiology - asymptomatic - avoid aggressive beta-blockade - per cardiology otherwise (2) Obesity (BMI 35.0-39.9 without comorbidity) Current Visit: Yes Status: Acute Plan to address problem: - weight loss counselled - outpatient sleep clinic evaluation appropriate (3) Carotid stenosis Current Visit: No Status: Chronic Qualifiers: Laterality: L Plan to address problem: - s/p CEA - discharge planning per attending but transfer to telemetry if not discharged home today Subjective Date of service: 11/26/16 Principal diagnosis: sinus bradycardia, s/p R CEA Interval history: Seen and examined at bedside; 24 hour events reviewed; nursing and respiratory care staff consulted; no adverse overnight events reported to me; resting peacefully; denies acute chest pains or increased SOB; no syncope or lightheadedness Objective Vital Signs - 12hr 11/26/16 11/26/16 11/26/16 00:00 00:01 00:15 Temperature 96.9 F L 96.9 F L Pulse Rate 65 Pulse Rate [ From Monitor] Respiratory 17 Rate Blood Pressure 119/69 O2 Sat by Pulse 98 Oximetry 11/26/16 11/26/16 11/26/16 01:00 02:00 03:01 Temperature Pulse Rate 47 L 48 L 46 L Pulse Rate [ 47 L From Monitor] Respiratory 15 16 17 Rate Blood Pressure 122/50 112/47 112/47 O2 Sat by Pulse 97 96 98 Oximetry 11/26/16 11/26/16 11/26/16 04:01 05:00 06:00 Temperature 96.0 F L Pulse Rate 47 L 44 L 47 L Pulse Rate [ 44 L From Monitor] Respiratory 26 H 16 19 Rate Blood Pressure 139/64 121/49 118/53 O2 Sat by Pulse 98 100 93 Oximetry 11/26/16 11/26/16 11/26/16 07:01 08:00 08:55 Temperature Pulse Rate 59 L 60 Pulse Rate [ 60 From Monitor] Respiratory 24 26 H 26 H Rate Blood Pressure 123/65 139/68 O2 Sat by Pulse 91 89 91 Oximetry 11/26/16 11/26/16 09:01 10:00 Temperature 98.5 F Pulse Rate 84 Pulse Rate [ From Monitor] Respiratory 13 Rate Blood Pressure 72/38 O2 Sat by Pulse 93 Oximetry Constitutional: no acute distress Eyes: non-icteric ENT: oropharynx moist Neck: supple, no lymphadenopathy Effort: normal Ascultation: Bilateral: clear, diminished breath sounds Cardiovascular: regular rate and rhythm Gastrointestinal: normoactive bowel sounds, soft, non-tender, non-distended Integumentary: normal Extremities: no cyanosis, pink and warm, no ischemia or petechiae Neurologic: normal mental status, non-focal exam, pupils equal and round, motor strength normal and Psychiatric: mood appropriate, affect normal CBC and BMP: 11/25/16 13:20 ABG, PT/INR, D-dimer: PT/INR, D-dimer PT 14.6 Sec. (12.2-14.9) 11/25/16 13:20 INR 1.15 (0.87-1.13) H 11/25/16 13:20 Abnormal lab findings: Abnormal Labs 11/24/16 11/25/16 11/25/16 12:30 13:20 13:20 INR 1.15 H Chloride 109.5 H Carbon Dioxide 20 L Creatinine 0.5 L Glucose 133 H Calcium 7.2 L D 7.8 L
--- NOTE | 2016-11-26 14:53 | Progress Note ---
Assessment and Plan Patient is postoperative day #2 status post right carotid endarterectomy. She has done fairly well however has had several episodes of hypotension with a systolic blood pressure as low as the 70s. We will keep her in the ICU overnight to monitor vitals and if she remains stable in the 24 hours she will be discharged home. Subjective Date of service: 11/26/16 Principal diagnosis: sinus bradycardia, s/p R CEA Interval history: The patient is without complaints. She has been noted to ambulate and tolerate full without difficulty swallowing. She had several episodes of hypotension overnight that resolved without intervention. Objective - Constitutional Vitals: Vital Signs - 12hr 11/26/16 11/26/16 11/26/16 03:01 04:01 05:00 Temperature Pulse Rate 46 L 47 L 44 L Pulse Rate [ 44 L From Monitor] Respiratory 17 26 H 16 Rate Blood Pressure 112/47 139/64 121/49 O2 Sat by Pulse 98 98 100 Oximetry 11/26/16 11/26/16 11/26/16 06:00 07:01 08:00 Temperature 96.0 F L Pulse Rate 47 L 59 L 60 Pulse Rate [ From Monitor] Respiratory 19 24 26 H Rate Blood Pressure 118/53 123/65 139/68 O2 Sat by Pulse 93 91 89 Oximetry 11/26/16 11/26/16 11/26/16 08:55 09:01 10:00 Temperature 98.5 F Pulse Rate 84 Pulse Rate [ 60 From Monitor] Respiratory 26 H 13 Rate Blood Pressure 72/38 O2 Sat by Pulse 91 93 Oximetry 11/26/16 11/26/16 11/26/16 10:01 11:01 12:01 Temperature Pulse Rate 75 59 L 72 Pulse Rate [ From Monitor] Respiratory 15 31 H 19 Rate Blood Pressure 114/48 122/50 160/88 O2 Sat by Pulse 90 94 92 Oximetry 11/26/16 11/26/16 11/26/16 13:00 13:01 14:00 Temperature 98.4 F Pulse Rate 61 Pulse Rate [ From Monitor] Respiratory 19 30 H Rate Blood Pressure 109/53 96/51 O2 Sat by Pulse 92 85 95 Oximetry General appearance: Present: no acute distress - EENT ENT: hearing decreased (at baseline), other (tongue is midline) - Neck Neck: supple, other (incision is clean dry and intact without any evidence of hematoma) - Respiratory Respiratory effort: normal - Cardiovascular Rhythm: regular Extremities: no ischemia - Gastrointestinal General gastrointestinal: Present: soft, non-tender, non-distended - Musculoskeletal Musculoskeletal: strength equal bilaterally - Labs CBC & Chem 7: 11/25/16 13:20
[2016-11-27 10:56] VITALS: BP 142/71
--- NOTE | 2016-11-27 11:02 | Progress Note ---
Assessment and Plan - Patient Problems (1) Bradycardia Current Visit: Yes Status: Acute Plan to address problem: - seen by cardiology - asymptomatic - coreg stopped - per cardiology otherwise (2) Obesity (BMI 35.0-39.9 without comorbidity) Current Visit: Yes Status: Acute Plan to address problem: - weight loss counselled - outpatient sleep clinic evaluation appropriate (3) Carotid stenosis Current Visit: No Status: Chronic Qualifiers: Laterality: L Plan to address problem: - s/p CEA - discharge planning per attending but transfer to telemetry if not discharged home today Subjective Date of service: 11/27/16 Principal diagnosis: sinus bradycardia, s/p R CEA Interval history: Seen and examined at bedside; 24 hour events reviewed; nursing and respiratory care staff consulted; no adverse overnight events reported to me; resting peacefully; no N/V/F/C; no significant bradycardia episodes Objective Vital Signs - 12hr 11/26/16 11/26/16 11/27/16 23:00 23:45 00:00 Temperature 99.5 F Pulse Rate 72 71 Pulse Rate [ From Monitor] Respiratory 32 H 34 H Rate Blood Pressure 141/60 145/81 O2 Sat by Pulse 95 95 Oximetry 11/27/16 11/27/16 11/27/16 01:00 02:00 03:00 Temperature Pulse Rate 72 73 68 Pulse Rate [ 61 From Monitor] Respiratory 25 H 28 H 21 Rate Blood Pressure 122/43 122/43 143/66 O2 Sat by Pulse 95 94 93 Oximetry 11/27/16 11/27/16 11/27/16 04:00 05:00 06:00 Temperature 98.4 F Pulse Rate 67 67 62 Pulse Rate [ 66 From Monitor] Respiratory 25 H 32 H 31 H Rate Blood Pressure 159/82 143/56 162/79 O2 Sat by Pulse 95 96 95 Oximetry 11/27/16 11/27/16 07:00 08:00 Temperature 99.1 F Pulse Rate 63 64 Pulse Rate [ From Monitor] Respiratory 19 21 Rate Blood Pressure 162/79 148/72 O2 Sat by Pulse 96 97 Oximetry Constitutional: no acute distress Eyes: non-icteric ENT: oropharynx moist Neck: supple, no lymphadenopathy Effort: normal Ascultation: Bilateral: clear, diminished breath sounds Cardiovascular: regular rate and rhythm Gastrointestinal: normoactive bowel sounds, soft, non-tender, non-distended Integumentary: normal Extremities: no cyanosis, pink and warm, no ischemia or petechiae Neurologic: normal mental status, non-focal exam, pupils equal and round, motor strength normal and Psychiatric: mood appropriate, affect normal CBC and BMP: 11/25/16 13:20 ABG, PT/INR, D-dimer: PT/INR, D-dimer PT 14.6 Sec. (12.2-14.9) 11/25/16 13:20 INR 1.15 (0.87-1.13) H 11/25/16 13:20 Abnormal lab findings: Abnormal Labs 11/24/16 11/25/16 11/25/16 12:30 13:20 13:20 INR 1.15 H Chloride 109.5 H Carbon Dioxide 20 L Creatinine 0.5 L Glucose 133 H POC Glucose Calcium 7.2 L D 7.8 L 11/27/16 00:04 INR Chloride Carbon Dioxide Creatinine Glucose POC Glucose 114 H Calcium
--- NOTE | 2016-11-27 11:02 | Discharge Summary ---
Providers - Providers Date of Admission: 11/24/16 05:46 Date of discharge: 11/27/16 Attending physician: TRAVIS RIVAS 11/24/16 14:31 Consult to Physician [CONS] Routine Consulting Provider: SONU MIXON Reason For Exam: ICU ADMISSION Place consult to:: DR MIXON Notified:: Y If yes, spoke with:: DR MIXON 11/25/16 12:19 Consult to Physician [CONS] Urgent Consulting Provider: UMA NICOLAS Reason For Exam: Bradycardia Place consult to:: [facility] [place] Notified:: no Phone number called:: placed on list Was contact made?: No If yes, spoke with:: paged overhead Time called:: 12:30 Primary care physician: POTATO CHIP MAKER Hospitalization Reason for admission: Carotid Stenosis Condition: Stable Procedures: Operative Report Operative Report: Date of procedure: 11/24/2016 Pre-operative diagnosis: Asymptomatic Right Carotid Artery Stenosis Post-operative diagnosis: Asymptomatic Right Carotid Artery Stenosis Procedure(s): 1. Right Carotid Endarterectomy With Patch Angioplasty 2. Intraoperative Completion Duplex Surgeon: Travis Rivas MD Milieu Counselor: None Anesthesia: General Endotracheal Anesthesia EBL: 50 mL Findings: Significant internal right carotid artery stenosis. 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 She had a CTA that confirmed approximately 90% stenosis of the right internal carotid artery. She is a symptomatically however given that her degree of stenosis greater than 80% and she was a suitable candidate for surgery she was offered an endarterectomy. She was given the risks, benefits, and alternative procedures and consented to procedure. Hospital course: Pt was admitted in prep for the above stated surgery which was completed without difficulty. Post-operatively she was transferred to the PACU and subsequently to the ICU. She did well post-op, but was noted to have labile BP. This is likely temporary and related to the CEA/carotid baroreceptors. Her BP has improved and is currently in the 120's. She o/w appears to be doing well. Will have her ambulate with assistance. If she tolerates this, then she will be d/c home. D/c instructions were given at the bedside. Disposition: DISCHARGED TO HOME OR SELFCARE - Discharge Diagnoses (1) Carotid stenosis Status: Chronic Qualifiers: Laterality: L Core Measure Documentation - Palliative Care Palliative Care/ Comfort Measures: Not Applicable - Core Measures Any of the following diagnoses?: none Exam - Constitutional Vitals: Temp Pulse Resp BP Pulse Ox 99.1 F 64 21 148/72 97 11/27/16 08:00 11/27/16 08:00 11/27/16 08:00 11/27/16 08:00 11/27/16 08:00 General appearance: Present: no acute distress - EENT Eyes: Present: EOM intact ENT: hearing decreased (unchanged) - Neck Neck: Present: supple (soft, Incision intact, no erythema or drainage, Mild eccymosis.) - Respiratory Respiratory effort: normal - Extremities Extremities: no ischemia - Psychiatric Psychiatric: appropriate mood/affect, intact judgment & insight, cooperative - Neurologic Neurologic: no focal deficits Plan Activity: advance as tolerated Weight Bearing Status: Weight Bear as Tolerated Diet: regular Wound: keep clean and dry Follow up with: TRAVIS RIVAS MD [Staff Physician] - 14 Days MARKUS GUADALUPE MD [Staff Physician] - 7 Days Prescriptions: HYDROcodone/APAP 7.5-325 [[place] 7.5/325] 1 each PO Q6HR PRN #60 tablet PRN Reason: Pain
--- NOTE | 2016-11-27 11:03 | Progress Note ---
Assessment and Plan Sinus bradycardia-->HR improves with activity pt. asymptomatic TSH normal coreg discontinued Cardiomyopathy EF 37% currently compensated no beta abel due to bradycardia no ACEI/ARB due to hypotension Coronary artery disease [facility] 11/10/16: akinetic anterior wall, apex, distal inferior wall, 70-75% mid LAD, 70-80% proximal LCX-->viability study planned Carotid stenosis s/p right CEA per vascular surgery Hypertension Hyperlipidemia Stable cardiac status. Follow up appointment with Dr. ANNA Alcantara in the [place] office on 12/03/16 at 3:30 pm. The patient has been seen in conjunction with Dr. Davalos who agrees with the assessment and plan of care. Subjective Date of service: 11/27/16 Principal diagnosis: sinus bradycardia, s/p R CEA Interval history: The patient is sitting up in a chair. No new complaints. Sinus rhythm on the monitor. Objective Last Vital Signs Temp 99.1 F 11/27/16 08:00 Pulse 66 11/27/16 10:00 Resp 21 11/27/16 10:00 BP 123/58 11/27/16 10:00 Pulse Ox 96 11/27/16 10:00 - Physical Examination General: No Apparent Distress HEENT: Positive: Normocephaly, Mucus Membranes Moist Neck: Positive: neck supple, trachea midline, Other (right neck surgical incision approximated) Cardiac: Positive: Reg Rate and Rhythm, S1/S2 Lungs: Positive: clear to auscultation Neuro: Positive: Grossly Intact Abdomen: Positive: Soft, Active Bowel Sounds. Negative: Tender Skin: Positive: Clear. Negative: Rash Extremities: Present: normal. Absent: edema - Imaging and Cardiology EKG: image reviewed Echo: report reviewed (09/2016: EF 37%) - Telemetry EKG Rhythm: Sinus Rhythm - EKG Sinus rhythms and dysrhythmias: sinus bradycardia Repolarization changes or abnormalities: ST or T wave suggestive of ischemia
[2016-11-27] MEDS: PLAVIX PO SCH (11:06)
[2016-11-27] MEDS: COLACE PO SCH (11:07)
[2016-11-27] MEDS: PEPCID PO SCH (11:07)
[2016-11-27] MEDS ORDERED: MAGIC MOUTHWASH PO SCH (14:00)
== END 2016-11-27 13:00 | disposition home or self-care (01) | DRG 38 ==
LOC: 3A 05:46 → CC1 12:06
PROVIDERS: ADMIT Surgery Vascular Surgery; ATTEND Surgery Vascular Surgery
PROC: 03CK0ZZ Extirpation of Matter from Right Internal Carotid Artery, Open Approach (ICD-10-PCS; principal; 2016-11-24)
PROC: 03UK0JZ Supplement Right Internal Carotid Artery with Synthetic Substitute, Open Approach (ICD-10-PCS; principal; 2016-11-24)
DX: I65.21 Occlusion and stenosis of right carotid artery (principal); I42.8 Other cardiomyopathies; I10 Essential (primary) hypertension; E78.5 Hyperlipidemia, unspecified; I87.2 Venous insufficiency (chronic) (peripheral); I70.203 Unspecified atherosclerosis of native arteries of extremities, bilateral legs; I25.10 Atherosclerotic heart disease of native coronary artery without angina pectoris; E66.9 Obesity, unspecified; R00.1 Bradycardia, unspecified; I95.9 Hypotension, unspecified; Z91.018 Allergy to other foods; Z91.048 Other nonmedicinal substance allergy status; Z98.890 Other specified postprocedural states; Z80.8 Family history of malignant neoplasm of other organs or systems; Z83.3 Family history of diabetes mellitus; Z82.49 Family history of ischemic heart disease and other diseases of the circulatory system; Z84.89 Family history of other specified conditions; Z79.899 Other long term (current) drug therapy; Z68.35 Body mass index [BMI] 35.0-35.9, adult; Z87.891 Personal history of nicotine dependence; Z71.3 Dietary counseling and surveillance
CPT/HCPCS: 36415; 36620; 80048; 82550; 82553; 82962; 83735; 84443; 84484; 85610; 86850; 86900; 86901; 88304; 88311; 93005; 93010; A4649; A9270-GY; C1768; J0690; J1100; J1265; J1644; J2250; J2270; J2405; J2704; J2710; J2765; J3010; J3490; J7030; J7040